=== PATIENT | female | born 1965 | race African-American/Black ===

== ENCOUNTER 2020-12-28 10:44 | Outpatient (CLI) | payer BC ==
[2020-12-28 17:58] LABS: SARS-CoV-2 PCR by NAA Not Detected (NotDetected)
== END 2020-12-28 10:45 | disposition home or self-care (01) ==
LOC: CSHLAB 10:44
PROVIDERS: ATTEND Surgery
DX: Z20.822 Contact with and (suspected) exposure to COVID-19 (principal); K21.9 Gastro-esophageal reflux disease without esophagitis
CPT/HCPCS: 87635; U0003; U0005

== ENCOUNTER 2021-01-02 05:39 | Day surgery (SDC) | payer BC ==
[2020-12-29 12:40] VITALS: BMI 57.3
[2021-01-02] MEDS ORDERED: Lidocaine 1% MPF 2 ML VIAL ONE (06:52)
[2021-01-02] MEDS ORDERED: PROPOFOL 20 ML ONE (07:36)
[2021-01-02] MEDS ORDERED: Fentanyl 100 MCG/2 ML VIAL ONE (07:36)
[2021-01-02] MEDS ORDERED: Midazolam HCl 2 mg/2 ml Vial ONE (07:36)
== END 2021-01-02 08:45 | disposition home or self-care (01) ==
LOC: CSHSDC 05:39
PROVIDERS: ATTEND Surgery
DX: K29.50 Unspecified chronic gastritis without bleeding (principal); B96.81 Helicobacter pylori [H. pylori] as the cause of diseases classified elsewhere; E66.01 Morbid (severe) obesity due to excess calories; K21.9 Gastro-esophageal reflux disease without esophagitis; K44.9 Diaphragmatic hernia without obstruction or gangrene
CPT/HCPCS: 88305; 88312; J2250; J2704; J3010